=== PATIENT | female | born 1930 | race Caucasian/White ===

== ENCOUNTER 2017-02-09 11:21 | Inpatient (IN) | payer MEDICARE, BC, MEDICAID ==
[~2017-02-09] VITALS: Ht 165.1 cm; Wt 63.3 kg
--- NOTE | ~2017-02-09 | ECHO ---
Transthoracic Echocardiography Report (TTE) Demographics Patient Name MARIKA ALVA Date of Study 02/11/2017 Patient Number [id number] Visit Number [id number] Date of 1930 Room Number G6304 Accession Number [id number] Gender Female Age 86 year(s) Referring Britney Sanz MD Safety Administrator Peña Anne RVT, Physician RDCS Physician Interpreting Leigh Ibarra MD Solar Design Engineer Physician Supervising Ordering Physician Anthony Lui MD/MLP Nurse Stress Parachute Accessories Attacher Conclusions Contractility Score Summary Normal Left Ventricular contractility was noted. Summary The estimated left ventricular ejection fraction is 55-60%. Moderate to severe concentric left ventricular hypertrophy. The right atrium is mildly dilated. Moderate mitral annular calcification. The aortic valve is moderately sclerotic. Mild tricuspid regurgitation by color Doppler. There is moderate pulmonary hypertension. The pulmonary pressure (RVSP) is 48 mmHg. Mild pulmonic valve regurgitation by color Doppler. Procedure Type of Study TTE procedure:2D Echocardiogram. Procedure Date Date: 02/11/2017 Start: 10:43 AM Study Location: Inpatient Portable Technical Quality: Fair due to poor acoustical window. Indications:Endocarditis. Appropriate Use Criteria: 8 Patient Status: Routine HR: 94 bpm BP: 138/86 mmHg M-Mode/2D Measurements LV Diastolic Dimension: 4.41 cm LV Systolic Dimension: 3.66 cm LV Septum Diastolic: 1.83 cm LV PW Diastolic: 1.62 cm AO Root Dimension: 2.3 cm Cardiac Output: 3.75 l/min AV Cusp Separation: 1.2 cm RV Diastolic Dimension: 3.26 cm LA volume: 74 ml LVOT: 2 cm RV Base: 3.64 cm LVOT VTI: 12.7 cm RV Mid: 2.86 cm LV Stroke volume: 39.88 ml TAPSE: 2.08 cm TDI-S': 12.3 cm/s Doppler Measurements AV Peak Velocity: 1.77 m/s MV Peak E-Wave: 0.78 m/s AV Peak Gradient: 12.53 mmHg MV Peak A-Wave: 1.14 m/s AV Mean Gradient: 9 mmHg MV E/A Ratio: 0.68 LVOT Peak Velocity: 0.71 m/s MV P1/2t: 74 msec TR Gradient:43.3 mmHg PV Peak Velocity: 1.16 m/s Estimated RAP:5 mmHg PV Peak Gradient: 5.38 mmHg Estimated RVSP: 48 mmHg Estimated PASP: 48.3 mmHg E' Septal Velocity: 0.03 m/s A' Septal Velocity: 0.07 m/s E' Lateral Velocity: 0.06 m/s A' Lateral Velocity: 0.1 m/s Findings Left Ventricle Moderate to severe concentric left ventricular hypertrophy. Diastolic assessment reveals Grade I diastolic dysfunction. Right Ventricle Normal right ventricle structure and function. Left Atrium The left atrium is moderately dilated. There is no evidence of patent foramen ovale or atrial septal defect by color Doppler. Right Atrium The right atrium is mildly dilated. IVC measures 1.88 cm with inspiratory collapse. Mitral Valve Moderate mitral annular calcification. Trivial mitral regurgitation by color Doppler. Aortic Valve The aortic valve is moderately sclerotic. Tricuspid Valve Mild tricuspid regurgitation by color Doppler. There is moderate pulmonary hypertension. The pulmonary pressure (RVSP) is 48 mmHg. Pulmonic Valve Mild pulmonic valve regurgitation by color Doppler. Pericardial Effusion No evidence of pericardial effusion. Miscellaneous Visualized portions of the aortic root and ascending aorta appear normal in size. Pleural Effusion No evidence of pleural effusion. Contractility Score LV regional wall motion:(0-Non visualized 1-Normal 2-Hypokinesis 3-Akinesis 4-Dyskinesis 5-Aneurysm) Signature dtt: Fred Abraham (cardio) dtd: 02/11/17 1043 Physician Self Edit
--- NOTE | ~2017-02-09 | HP ---
PATIENT'S NAME: MARIKA ALVA [facility] AGE: 86 Y [address] ROOM: G6304 [place], [place] [address] LOCATION: [facility] ADMIT DATE: 02/09/2017 History & Physical DISCHARGE DATE: FAMILY PHYSICIAN: PHYSICIAN, UNKNOWN ATTENDING PHYSICIAN: MICHEAL IRIZARRY DATE OF SERVICE: CHIEF COMPLAINT: Generalized weakness. HISTORY OF PRESENT ILLNESS: This is an 86-year-old shelter female resident, who has a history of recurrent UTIs in the past. According to the patient's daughter and shelter staff, the patient for the last few days has become less interactive and complaining of generalized weakness. Also has decreased appetite. This morning, the patient was found to have a fever of 102.0 at the shelter. The patient had the breakfast, and a few hours after the breakfast, patient vomited once, but patient did not have any shortness of breath and she was not hypoxic. The last time she was seen by her daughter was 2 days ago, where the daughter also noticed that her mother has become less interactive and also looked tired. The patient chronically has whitish productive cough and this has not changed. The patient denies any chest pain or shortness of breath. No palpitation or diaphoresis, but she is just complaining of chills. When asked about the urinary frequency, urgency, and dysuria, patient denies. The patient has dementia at baseline, and according to the daughter, the baseline is alert, but sometimes she is not oriented and she is very easily forgetful, and sometimes cannot carry on normal conversation. Today, the patient looks weaker than her usual baseline according to the daughter. In the emergency room, the patient was found to have a UTI and a chest x-ray was clear, and saturation was normal on room air. The patient will be admitted for UTI management. REVIEW OF SYSTEMS: As mentioned in the history of present illness. All other systems were reviewed and were negative except for those mentioned in the history of present illness. PAST MEDICAL HISTORY: 1. 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 Chronically on anticoagulation with Eliquis. 2. Diabetes, type 2. 3. Hypertension. 4. CKD, stage 3. 5. Recurrent UTI in the past. PATIENT'S NAME: MARKIA ALVA [facility] AGE: 86 Y [address] ROOM: G6304 [place], [place] [address] LOCATION: [facility]U ADMIT DATE: 02/09/2017 History & Physical DISCHARGE DATE: FAMILY PHYSICIAN: PHYSICIAN, UNKNOWN ATTENDING PHYSICIAN: MICHEAL IRIZARRY 6. Gastroesophageal reflux disease. 7. Dementia. ALLERGIES: HER ALLERGY LIST FROM THE [facility]IDENT PAPERWORK SHOWS THAT SHE HAS ALLERGY TO: 1. VICTOR HUGO INHIBITOR, UNKNOWN REACTION. 2. BACTRIM, UNKNOWN REACTION. 3. CRESTOR, UNKNOWN REACTION. 4. LATEX, UNKNOWN REACTION. 5. MACROBID, ALSO UNKNOWN REACTION. 6. PREDNISONE, ALSO UNKNOWN REACTION. 7. ROFECOXIB, ALSO UNKNOWN REACTION. 8. RUBBER, ALSO UNKNOWN REACTION. 9. STRAWBERRY, ALSO UNKNOWN REACTION. 10. SOAP, ALSO UNKNOWN REACTION. 11. SULFA, ALSO UNKNOWN REACTION. 12. VIOXX, ALSO UNKNOWN REACTION. HOME MEDICATIONS: Currently are being reconciled. The patient does take Eliquis at home. SOCIAL HISTORY: The patient is a shelter resident. The patient is most of the time wheelchair bound. Denies any cigarette or illegal drug or alcohol use. FAMILY HISTORY: The patient could not remember any of her parents medical problems. PAST SURGICAL HISTORY: Status post right wrist fracture surgery in the past. PHYSICAL EXAMINATION: VITAL SIGNS: At the time of my dictation, temperature is 98.5, blood pressure is 140/96, heart rate is 80, respirations are 14, and saturation is 97% on room air. GENERAL APPEARANCE: Alert, currently is oriented to person and place, but not to time. The daughter states that this is her usual baseline. No acute distress. The patient looks sleepy, weak, and elderly. HEENT: Pupils equally round and reactive to light. Extraocular muscles intact. Anicteric sclerae. Nasal turbinates are normal bilaterally. Dry oral mucosa. NECK: No JVD. CARDIOVASCULAR: Regular rate and rhythm. Normal S1 and S2. No murmurs. No rubs. No gallops. PATIENT'S NAME: MARIKA ALVA [facility] AGE: 86 Y [address] ROOM: G6304 [place], [place] [address] LOCATION: GPCU ADMIT DATE: 02/09/2017 History & Physical DISCHARGE DATE: FAMILY PHYSICIAN: PHYSICIAN, UNKNOWN ATTENDING PHYSICIAN: MICHEAL IRIZARRY RESPIRATORY: Clear to auscultation. No rales. No rhonchi. No crackles. No wheezing at the moment. ABDOMEN: Soft, obese, nontender, nondistended, bowel sounds present, and no mass. EXTREMITIES: No edema in the upper or lower extremities. SKIN: No ulcer. No rash. No cyanosis. NEUROLOGIC: Alert and oriented only to people and place, but not to time at the moment on my examination. Otherwise, nonfocal. LABORATORY DATA: Lactic acid 1.2. Troponin 0.084, CPK 53. White blood cells 15.9, hemoglobin 9.9, hematocrit 30.8, MCV 88.8, and platelets 487,000. Glucose 143, BUN 23, creatinine 1.3, sodium 142, potassium 4.0, chloride 109, CO2 of 25, and calcium 8.9. Total protein 8.9, albumin 2.6, AST 10, ALT 15, alkaline phosphatase 124, total bilirubin 0.5, and GFR 39. Anion gap 12. INR 1.21. PTT 35. Urinalysis; 500 leukocytes, negative nitrite, many bacteria, and white blood cells 50-100. CK-MB 0.6, procalcitonin 0.18. IMAGING STUDY: 1. Chest x-ray on admission showed no acute finding. 2. EKG on admission showed heart rate of 72, sinus rhythm with Q-wave in the lead #3, inferior lead. No acute ST elevation or ST depression. QTc 427 milliseconds, QRS 94 milliseconds, and AK 191 milliseconds. No prior EKG for comparison based on the [employer]. EMERGENCY ROOM COURSE: In the emergency room, the patient got 1 L of normal saline bolus followed by the second liter running at 200 mL/h. Also got 1 dose of IV Levaquin. ASSESSMENT AND PLAN: 1. Regarding her severe sepsis secondary to urinary tract infection: The IV fluids, continue right now, she already got 1L bolus and systolic blood pressure and MAP already above 65. The sepsis order set has already been completed. Currently, blood pressure is stable as systolic is in the 160, MAP is in the 75. Heart rate is in 80s. Continue IV fluids for hydration and check blood sugar closely. Also start her on the antibiotics. I will choose IV Zosyn to cover her and tailor until the urine culture comes back for sensitivity. Zosyn is a good coverage for both urinary tract infection and also for aspiration pneumonitis or pneumonia events. Currently, the patient is on room air saturating at 98%. Lungs are clear. Chest x-ray was unremarkable. At the moment, unlikely to have aspiration pneumonia or pneumonitis. Blood culture 2 sets already obtained. Further plan will depend on clinical course. 2. Regarding her acute anemia: She is on Eliquis. Family denies any bleeding in the past. We will check blood type and screen. Continue the home medication with Protonix. We will watch her closely. I will check PATIENT'S NAME: MARIKA ALVA [facility] AGE: 86 Y [address] ROOM: [place] [address] LOCATION: GPCU ADMIT DATE: 02/09/2017 History & Physical DISCHARGE DATE: FAMILY PHYSICIAN: PHYSICIAN, UNKNOWN ATTENDING PHYSICIAN: MICHEAL IRIZARRY another hemoglobin and hematocrit later tonight. 3. Regarding her troponin elevation: Cycle every 6 hours. The patient denies any chest pain. EKG; no acute ischemia. The patient is DNR/DNI. Further plan will depend on clinical course. We do not have any baseline to compare the troponin elevation, therefore, this could be from acute kidney injury on chronic kidney disease. 4. Regarding her acute kidney injury on chronic kidney disease, stage 3: Continue with IV fluid hydration. Check a renal panel again tomorrow. 5. Regarding her diabetes, type 2: Check A1c. Put the insulin NovoLog a.c. and at bedtime low dose and titrate as necessary. 6. Regarding her history of right lower extremity deep venous thrombosis: Continue with Eliquis. Watch closely for the hemoglobin and hematocrit. 7. Regarding her hypertension: I will hold the blood pressure medication in the setting of severe sepsis with hypotension. 8. Regarding her gastroesophageal reflux disease: Continue the home Protonix. 9. Regarding her deep venous thrombosis prophylaxis: She is already on Eliquis. 10. Code status: She is a DNR/DNI. Time spent in care on the day of admission 45 minutes where 25 minutes were spent in counseling, including going over the plan of care and also addressing all the questions and concerns the patient and the patient's daughter had. The remainder of the time was spent in interview and physical examination. Also on the chart review. Further plan will depend on clinical course. MD KEERTHI BHAGAT/yokasta /[id number] D: [id number] T: [id number] HISTORY & PHYSICAL
--- NOTE | ~2017-02-09 | CON ---
PATIENT'S NAME: MARIKA ALVA [facility] AGE: 86 Y [address] ROOM: [place] [address] LOCATION: GPCU ADMIT DATE: 02/09/2017 Consultation DISCHARGE DATE: 02/13/2017 FAMILY PHYSICIAN: Physician, Unknown ATTENDING PHYSICIAN: Senthil Tan DATE OF CONSULTATION: 02/13/2017 REFERRING PHYSICIAN: Hu Shin MD REASON FOR CONSULT: Red buttocks. HISTORY OF PRESENT ILLNESS: This is an 86-year-old female patient who is admitted to [facility] with weakness and a fever. She has a history of dementia and recurrent urinary tract infections. She currently resides at [facility]. Nursing reports frequent stools with redness to buttocks. The [facility] RN saw patient for the skin assessment yesterday and no redness was noted. No signs of pressure ulcers. The patient does complain of pain to the site. She currently reports a fair oral intake. She currently reports being afebrile. She complains of being "cold." No family at bedside. PAST MEDICAL HISTORY: Dementia, recurrent urinary tract infections, history of right lower leg deep venous thrombosis, type 2 diabetes, essential hypertension, chronic kidney disease stage 3, and GERD. PAST SURGICAL HISTORY: Bilateral cataract surgery, right hip repair, right femur fracture, right wrist surgery, back surgery, and a right cheek repair. PAST FAMILY MEDICAL HISTORY: Positive for an LA. SOCIAL HISTORY: The patient currently resides at [facility]. No toxic habits noted. ALLERGIES: LATEX, PERFUMES, VICTOR HUGO INHIBITOR, SULFA, ANIMAL DANDER, CEPHALEXIN, LANOLIN, MOLD, MACROBID, PREDNISONE, CRESTOR, SOAPS, STRAWBERRIES, BACTRIM, ROFECOXIB, DUST, FORMALDEHYDE, PLASTIC TAPE, RUBBER, AND DETERGENTS. CURRENT MEDICATIONS: Please refer to the medication administration record. PATIENT'S NAME: MARIKA ALVA [facility] AGE: 86 Y [address] ROOM: [place] [address] LOCATION: GPCU ADMIT DATE: 02/09/2017 Consultation DISCHARGE DATE: 02/13/2017 FAMILY PHYSICIAN: , Unknown ATTENDING PHYSICIAN: Senthil Tan REVIEW OF SYSTEMS: Unable to fully complete due to patient's history of dementia. Please see HPI for further details. PHYSICAL EXAMINATION: VITAL SIGNS: Temperature 97.5, pulse 80, respirations 12, blood pressure was 124/57, pulse oximetry 94% on room air. Height 5 feet 5 inches and weight 63.3 kg. GENERAL: The patient is alert. Complains she is cold. HEENT: Head normocephalic, atraumatic. NEUROLOGICAL: Deferred. EXTREMITIES: Deferred. ABDOMEN: Flat. SKIN: Bright redness to peritoneum. No skin denudement. Very tender to touch. No redness over the bony prominences or the sacrum. Groin folds intact. LABORATORY: White blood cell count 9.2, hemoglobin 7.9, hematocrit 25.3, platelets 393. Sodium 141, potassium 3.5, chloride 111, bicarb 22, BUN 12, creatinine 0.9, glucose 140, albumin 2.0. Blood cultures positive for Staphylococcus epidermidis. ASSESSMENT AND PLAN: Again, this is an 86-year-old female patient who admitted to [facility] with weakness and fever. Wound care consult to evaluate a red buttocks. Incontinence-associated dermatitis with no skin denudement. Classic presentation. Very painful per palpation. We will discontinue the Aloe [place] and coat the site with Sensi-Care zinc barrier paste applying q.i.d. after brief change. I instructed nursing to perform brief check and change every 2 hours. I would like to thank Dr. Shin for this consult. DAVID SAGASTUME APRN FOR MD FBAIENNE GORMAN/modl PATIENT'S NAME: MARIKA ALVA [facility] AGE: 86 Y [address] ROOM: G6[address] [place], [place] [address] LOCATION: GPCU ADMIT DATE: 02/09/2017 Consultation DISCHARGE DATE: 02/13/2017 FAMILY PHYSICIAN: Physician, Unknown ATTENDING PHYSICIAN: Senthil Tan /[id number] d: 02/13/17 1624 t: 02/18/17 1029, CONSULTATION REPORT
--- NOTE | ~2017-02-09 | ER ---
PATIENT'S NAME: MARIKA ALVA [facility] AGE: 86 Y [address] ROOM: [place] [address] LOCATION: GPCU ADMIT DATE: 02/09/2017 ER/Outpatient Report DISCHARGE DATE: FAMILY PHYSICIAN: PHYSICIAN, UNKNOWN ATTENDING PHYSICIAN: MICHEAL IRIZARRY Time of Arrival: 1121. Time Seen: 1123. IDENTIFICATION: An 86-year-old female. CHIEF COMPLAINT: Illness. HISTORY OF PRESENT ILLNESS: The patient is an 86-year-old female patient from [facility]. The patient not acting like herself according to the residential staff, is pale, and had a reported temp at 0445 of 102.4. The patient was brought in by ambulance. On the ambulance, her blood pressure was 130 systolic. On arrival here, her blood pressure is 86/40. The patient does have a history of dementia. She complains of hurting "all over." Her daughter said she has not felt well for a couple of days, just has not been her usual self. ALLERGIES: VICTOR HUGO INHIBITORS, ANIMAL DANDER, BACTRIM, CRESTOR, DETERGENT, DUST, FORMAMIDES, LANOLIN, LATEX, MACROBID, MOLD, PLASTIC TAPE, PREDNISONE, ROFECOXIB, RUBBER, SOAP, STRAWBERRIES, SULFA ANTIBIOTICS, AND VIOXX. CURRENT MEDICATIONS: 1. Claritin 10 mg daily. 2. Gabapentin 300 mg daily. 3. Multivitamin daily. 4. Norvasc 10 mg daily. 5. Omeprazole 20 mg daily. 6. Os-Jonny 500/200 daily. 7. Tylenol Extra Strength. 8. Eliquis 2.5 mg b.i.d. 9. Metoprolol 50 mg b.i.d. 10. Cheratussin AC. 11. Dulcolax suppository p.r.n. 12. Milk of magnesia p.r.n. 13. Tylenol p.r.n. MEDICAL PROBLEMS: PATIENT'S NAME: MARIKA ALVA [facility] AGE: 86 Y [address] ROOM: [place] [address] LOCATION: GPCU ADMIT DATE: 02/09/2017 ER/Outpatient Report DISCHARGE DATE: FAMILY PHYSICIAN: PHYSICIAN, UNKNOWN ATTENDING PHYSICIAN: MICHEAL IRIZARRY History of UTIs, hypertension, depression, osteoporosis, osteoarthritis, cervical and lumbar spinal stenosis, and atopic dermatitis. PRIOR SURGERIES: Right intramedullary nail placement and right wrist fracture repair. SOCIAL HISTORY: The patient lives at [facility]. She is wheelchair bound. Tobacco use, denies. Alcohol use, denies. Drug use, denies. REVIEW OF SYSTEMS: The patient does state she has had a nonproductive cough and her daughter agrees that she has had kind of a continued cough, but that is not new. FAMILY HISTORY: No pertinent family history identified. PHYSICAL EXAMINATION: VITAL SIGNS: Weight 63.3 kg, blood pressure 86/40, pulse 75, respirations 16, temperature 98.2, and sats 92% on room air. The patient's blood pressure was 86/40 and IV had already been initiated. We did open up 1 L of normal saline fluid bolus and obtained labs and sepsis evaluation. Blood pressure did improve to 90 systolic and then up to 108 systolic with that 1 L of normal saline. LABORATORY DATA: Blood cultures x2 are pending. Sepsis protocol was initiated. Hemoglobin 9.9, previous hemoglobin in August 2015 was 11.7; hematocrit 30.8; platelets 47; white count 15.9; 79% neutrophils. UA, cath urine, specific gravity 1.015, pH 6, leukocytes positive, 50-100 white cells, 10-20 red cells, rare epithelial cells, many bacteria. Urine culture pending. Lactate 1.2. EKG, normal sinus rhythm at 72 beats per minute. No acute ST elevation or depression. T-wave inversion in lead III is present. Procalcitonin 0.18. Sodium 142, potassium 4, chloride 109, CO2 of 25, BUN 23, and creatinine 1.3, which is elevated from 1.1 in August 2015. Blood sugar 143. Liver enzymes normal. ProBNP 12,998. Troponin I 0.084. CPK 53, CK-MB 0.6. A 1-view chest x-ray, cardiomegaly. No CHF or pneumonia. Mild diffuse parenchymal lung scarring. IMPRESSION: 1. Sepsis. Sepsis criteria are met. ER orders were initiated and the patient responded to the fluid bolus with blood pressures greater than 100 systolic. 2. Urinary tract infection. Levaquin initiated in the emergency room. 3. Congestive heart failure. PATIENT'S NAME: MARIKA ALVA [facility] AGE: 86 Y [address] ROOM: [place] [address] [facility] ADMIT DATE: 02/09/2017 ER/Outpatient Report DISCHARGE DATE: FAMILY PHYSICIAN: PHYSICIAN, UNKNOWN ATTENDING PHYSICIAN: MICHEAL IRIZARRY 4. Dementia. The patient will be admitted per Dr. Irizarry, who evaluated the patient in the emergency room. She is a DNR and that was confirmed with orders from the residential and with her daughter. The patient arrived to the emergency room at 1121 and was taken to the floor at 1350, 40 minutes of critical care was provided in the emergency room. MD JOSE DE JESUS SPANN/yokasta /[id number] d: 02/09/17 1855 t: 02/10/17 1458, OUTPATIENT REPORT
--- NOTE | ~2017-02-09 | DS ---
PATIENT'S NAME: MARIKA ALVA [facility] AGE: 86 Y [address] ROOM: [address] [place], [place] [address] LOCATION: GPCU ADMIT DATE: 02/09/2017 Discharge Summary DISCHARGE DATE: 02/13/2017 FAMILY PHYSICIAN: Physician, Unknown ATTENDING PHYSICIAN: Senthil Tan PRINCIPAL DIAGNOSES: 1. Urinary tract infection sepsis. 2. Staphylococcus bacteremia. 3. Long-term use of anticoagulation. 4. Type 2 diabetes. 5. Sinus arrhythmia. 6. History of lower extremity deep vein thrombosis, on Eliquis. BRIEF HOSPITAL COURSE: Please refer to admission H and P for a detailed history of initial presentation. This is an 86-year-old female, who is a halfway resident and recurrent previous admissions for UTI sepsis, presents with altered mental status and was noted to have another UTI. On further work up, the patient's blood culture in one bottle grew Staphylococcus epidermidis which later was identified to be Staphylococcus epidermidis and was perhaps a contaminant. The patient was treated with broad-spectrum antibiotics with vancomycin and Zosyn during her hospital stay and at this point, we will discharge the patient to finish a 7 day course of antibiotics in total with Levaquin. The patient today is awake, alert, oriented x3, in no acute distress, in good spirits. I did talk to the patient's primary care physician with regard to her being on long-term anticoagulation for a history of lower extremity DVT over a year ago. At this point, I will discontinue Eliquis and I have communicated this to the patient's primary care physician, . There is no indication for this going forward. The patient is ready to be discharged in satisfactory condition. PHYSICAL EXAMINATION: VITAL SIGNS: Stable, afebrile for the past 48 hours. HEART: S1, S2. Regular rate and rhythm. ABDOMEN: Soft. Nontender, nondistended. EXTREMITIES: Without edema. NEUROLOGIC: Grossly nonfocal. MEDICATIONS: Per OCT. DISPOSITION: Back to halfway. Greater than 30 minutes were spent in discharge planning and facilitating. PATIENT'S NAME: MARIKA ALVA [facility] AGE: 86 Y [address] ROOM: [address] [place], [place] [address] LOCATION: GPCU ADMIT DATE: 02/09/2017 Discharge Summary DISCHARGE DATE: 02/13/2017 FAMILY PHYSICIAN: Mckenzie William ATTENDING PHYSICIAN: Senthil Tan MD RICH RAMIREZ/modl /[id number] d: 02/14/17913 t: 02/25/17 1510, DISCHARGE SUMMARY
[~2017-02-09 11:21] MED LIST changes: -CHERATUSSIN AC236 ML PO; -CLARITIN10 MG PO; -DULCOLAX10 MG R; -MILK OF MA400 MG/5 M PO; -OXYGEN M-15 NOSE; -TRIAMCINOLONE454 GM TOP
[2017-02-09 12:16] LABS: BILIRUBIN URINE NEGATIVE (NEGATIVE); BLOOD URINE 250 /UL (NEGATIVE); COLOR URINE YELLOW (YELLOW); GLUCOSE URINE NEGATIVE (NEGATIVE); KETONE URINE NEGATIVE (NEGATIVE); LEUKOCYTES URINE 500 /UL (NEGATIVE); NITRITE URINE NEGATIVE (NEGATIVE); PROTEIN URINE 100 mg/dL (NEGATIVE); SPEC GRAVITY URINE 1.015 (1.003-1.035); TURBIDITY URINE 3+ (CLEAR); UROBILINOGEN URINE NORMAL (NORMAL)
[2017-02-09 12:31] LABS: BASOPHIL % 0.3 %; EOSINOPHIL # 0.1 K/uL (0.0-0.5); EOSINOPHIL % 0.5 %; HEMATOCRIT 30.8 % (30.0-46.0); HEMOGLOBIN 9.9 g/dL (10.0-15.0); IMMATURE GRANULOCYTE # 0.1 K/uL (0.0-0.3); IMMATURE GRANULOCYTE % 0.8 %; LYMPHOCYTE # 1.6 K/uL (0.8-4.0); LYMPHOCYTE % 10.3 %; MCH 28.5 pg (27.0-34.0); MCHC 32.1 gm/dL (32.0-36.5); MCV 88.8 fl (83.0-98.0); MONOCYTE # 1.4 K/uL (0.0-1.0); MONOCYTE % 8.7 %; MPV 9.7 fl (9.4-12.4); NEUTROPHIL # (ANC) 12.6 K/uL (1.8-7.8); NEUTROPHIL % 79.4 %; NRBC % 0 /100WBC (0-0.00); PLATELET COUNT 487 K/uL (150-450); RBC 3.47 M/uL (3.00-5.00); RDW-CV 13.6 % (11.9-14.6); WBC 15.9 K/uL (4.0-11.0)
[2017-02-09 12:32] LABS: WBC URINE 50-100 #/HPF (NEGATIVE)
[2017-02-09 12:33] LABS: BACTERIA URINE MANY (NEGATIVE); EPITHELIAL URINE RARE #/HPF (NEGATIVE)
[2017-02-09 12:39] LABS: INR - (THERAPEUTIC) 1.21 (0.92-1.07); PROTIME 12.7 SECONDS (9.8-11.4)
[2017-02-09 12:53] LABS: ALBUMIN 2.6 gm/dL (3.5-5.0); CALCIUM 8.9 mg/dL (8.5-10.5); CREATININE 1.3 mg/dL (0.5-1.1); TOTAL BILIRUBIN 0.5 mg/dL (0.0-1.5); TOTAL PROTEIN 8.9 g/dL (6.0-8.4)
[2017-02-09] MEDS ORDERED: CLARITIN10 MG PO (15:40)
[2017-02-09] MEDS ORDERED: MILK OF MA400 MG/5 M PO (15:49)
[2017-02-09] MEDS ORDERED: DULCOLAX10 MG R (15:51)
[2017-02-09] MEDS ORDERED: CHERATUSSIN AC236 ML PO (15:53)
[2017-02-09] MEDS ORDERED: OXYGEN M-15 NOSE (15:59)
[2017-02-09] MEDS ORDERED: TRIAMCINOLONE454 GM TOP (16:01)
[2017-02-09 18:37] LABS: HEMATOCRIT 29.2 % (30.0-46.0); HEMOGLOBIN 9.4 g/dL (10.0-15.0); MCH 28.5 pg (27.0-34.0); MCHC 32.2 gm/dL (32.0-36.5); MCV 88.5 fl (83.0-98.0); MPV 9.5 fl (9.4-12.4); RBC 3.3 M/uL (3.00-5.00); RDW-CV 13.4 % (11.9-14.6); WBC 13.4 K/uL (4.0-11.0)
--- NOTE | 2017-02-09 18:45 | NUR ---
ADMISSION NOTE: Pt lives at [facility] where she had fever of 102.4 last night and just not acting herself/agitation. Family also reports cough for past 2 months. Cxray neg to pneumonia. Giving Abx for UTI. Hx of dementia, HTN, GERD, multiple DVTs, spinal stenosis. Many allergies including latex. VSS, afebrile, on 1L O2 to keep sats >94%. Oriented to person, able to state daughters name. Denies chest pain, will repeat EKG and cardiac enzymes. Full lift, turn Q2, weak BLE, L arm weaker than R. Incontinent, 2 BM today. No previous dx of diabetes, orders for Accuchek ACHS with mild sliding scale, A1C 7.3. Poor appetite, needs encouragement with meals, regular texture diet. Pills crushed with applesauce per senior living.
[2017-02-09 18:51] LABS: ANION GAP 12.9 (10.0-19.0); CALCIUM 8.5 mg/dL (8.5-10.5); CREATININE 1.2 mg/dL (0.5-1.1); POTASSIUM 3.9 mMol/L (3.7-5.1)
[2017-02-10 01:02] LABS: HEMATOCRIT 31.5 % (30.0-46.0)
--- NOTE | 2017-02-10 05:16 | NUR ---
Significant Event: ALERT TO PERSON. DISORIENTED TO TIME/PLACE. PLEASANTLY CONFUSED ALL NIGHT. NOT SLEEPING WELL. INCONT OF LARGE AMOUNTS OF URINE ALL NIGHT. O2 AT 1L. TEMP AT 0215 WAS 100.8, AXILLARY. HAD BEEN AFEBRILE PRIOR TO THIS. Follow up:
[2017-02-10 06:59] LABS: HEMATOCRIT 27.8 % (30.0-46.0); HEMOGLOBIN 8.9 g/dL (10.0-15.0); MCH 28.4 pg (27.0-34.0); MCV 88.8 fl (83.0-98.0); MPV 9.6 fl (9.4-12.4); RBC 3.13 M/uL (3.00-5.00); RDW-CV 13.6 % (11.9-14.6); WBC 13.3 K/uL (4.0-11.0)
[2017-02-10 07:12] LABS: ANION GAP 13.7 (10.0-19.0); CALCIUM 8.2 mg/dL (8.5-10.5); POTASSIUM 3.7 mMol/L (3.7-5.1)
[2017-02-10 07:30] LABS: CPK 67 IU/L (21-215)
--- NOTE | 2017-02-10 16:42 | NUR ---
Significant Event: Alert. Appears to be comfortable but states she aches "everywhere". Tylenol given and frequent repositioning. Poor appetite, refused lunch when speech here to assess swallowing so they will follow up tomorrow. Incontinent of stool and urine. Tn-I unchanged. Follow up: cont plan of care
[2017-02-11 03:49] LABS: BASOPHIL % 0.3 %; EOSINOPHIL # 0.2 K/uL (0.0-0.5); EOSINOPHIL % 1.3 %; HEMATOCRIT 29.6 % (30.0-46.0); HEMOGLOBIN 9.4 g/dL (10.0-15.0); IMMATURE GRANULOCYTE # 0.1 K/uL (0.0-0.3); IMMATURE GRANULOCYTE % 0.8 %; LYMPHOCYTE # 1.3 K/uL (0.8-4.0); LYMPHOCYTE % 9.8 %; MCH 28.3 pg (27.0-34.0); MCHC 31.8 gm/dL (32.0-36.5); MCV 89.2 fl (83.0-98.0); MONOCYTE # 1.1 K/uL (0.0-1.0); MONOCYTE % 8.2 %; MPV 9.7 fl (9.4-12.4); NEUTROPHIL # (ANC) 10.7 K/uL (1.8-7.8); NEUTROPHIL % 79.6 %; NRBC % 0 /100WBC (0-0.00); PLATELET COUNT 402 K/uL (150-450); RBC 3.32 M/uL (3.00-5.00); RDW-CV 13.7 % (11.9-14.6); WBC 13.5 K/uL (4.0-11.0)
[2017-02-11 04:03] LABS: ALBUMIN 2.2 gm/dL (3.5-5.0); ANION GAP 13.5 (10.0-19.0); CALCIUM 8.3 mg/dL (8.5-10.5); MAGNESIUM 1.5 mg/dL (1.8-2.6); PHOSPHORUS 2.5 mg/dL (2.5-4.9); POTASSIUM 3.5 mMol/L (3.7-5.1)
--- NOTE | 2017-02-11 05:38 | NUR ---
Significant Event: ONLY C/O PAIN WHEN MOVED. REMAINS INCONT OF URINE ALL NIGHT. NO BM. REMAINS DISORIENTED TO TIME. ORIENTED TO PLACE. BLOOD CULTURES FORM ER CAME BACK POSITIVE AND DR. PELAEZ NOTIFIED AND HE STARTED IV VANCOMYCIN. MAX TEMP WAS 99.6 AXILLARY. HR IN THE 90s TO LOW 100s. STILL HAS LITTLE APPETITE. ONLY ATE ICE CREAM FOR SUPPER. Follow up:
--- NOTE | 2017-02-11 14:31 | NUR ---
Patient resides at [facility] in [place]. Plan will be to return to [facility] on discharge. I updated Melissa WESTON at [facility] on patient condition.
--- NOTE | 2017-02-11 17:07 | NUR ---
Significant Event: VSS AND RA. AFEBRILE. SCHEDULED TYLENOL, DENIES PAIN. REPOSITIONED Q2H AND ALOE TO BUTTOCKS. INC URINE AND STOOL. HAD A BEDSIDE SWALLOW EVAL AND AN MBS; TO HAVE A MECHANICAL SOFT DIET WITH THIN CONSISTENCY FLUIDS AND A 1:1 FEEDER. MEDS CRUSHED IN PUDDING/APPLESAUCE. PT/OT FOLLOWING AND DANGLES AT BEDSIDE. BASELINE DEMENTIA, ORIENTED TO SELF ONLY. IV ABX CONTINUE. EKG AND ECHO WERE ALSO DONE AND PO LOPRESSOR STARTED FOR TACHY HR'S 90S-100S; HAVE BEEN 70S-80S THIS AFTERNOON P DOSE GIVEN. SBPS 100S-140S. Follow up: CONTINUE PLAN OF CARE.
[2017-02-12 03:59] LABS: BASOPHIL # 0.1 K/uL (0.0-0.2); BASOPHIL % 0.5 %; EOSINOPHIL # 0.2 K/uL (0.0-0.5); HEMATOCRIT 25.8 % (30.0-46.0); HEMOGLOBIN 8.2 g/dL (10.0-15.0); IMMATURE GRANULOCYTE # 0.1 K/uL (0.0-0.3); IMMATURE GRANULOCYTE % 0.8 %; LYMPHOCYTE # 1.4 K/uL (0.8-4.0); LYMPHOCYTE % 13.6 %; MCH 28.1 pg (27.0-34.0); MCHC 31.8 gm/dL (32.0-36.5); MCV 88.4 fl (83.0-98.0); MONOCYTE # 0.9 K/uL (0.0-1.0); MONOCYTE % 8.8 %; MPV 9.6 fl (9.4-12.4); NEUTROPHIL # (ANC) 7.8 K/uL (1.8-7.8); NEUTROPHIL % 74.3 %; NRBC % 0 /100WBC (0-0.00); PLATELET COUNT 413 K/uL (150-450); RBC 2.92 M/uL (3.00-5.00); RDW-CV 13.7 % (11.9-14.6); WBC 10.5 K/uL (4.0-11.0)
[2017-02-12 04:22] LABS: ANION GAP 13.3 (10.0-19.0); MAGNESIUM 1.4 mg/dL (1.8-2.6); PHOSPHORUS 2.1 mg/dL (2.5-4.9); POTASSIUM 3.3 mMol/L (3.7-5.1)
--- NOTE | 2017-02-12 05:46 | NUR ---
Significant evnt: patient alert to self only. 1:1 feeder. mechanical soft diet and thin liquids. Crush meds and put in apple sauce. Turn every 2 hours to reposition. Incon of bowel and bladder. IV ATB intermit runnig in the left ac.
--- NOTE | 2017-02-12 19:00 | NUR ---
Significant Event: Patient A/O to self. VSS. Afebrile. BP 100-110's HR 80-70's. Full lift. Patient turned q2h. Inc of fecal and urine. Jp area very reddened. Applied aloe vera with every change. WOC to assess jp area. Sent sample of bm to lab for C-Diff test @ 1830. IV ABX in L) forearm. Continue mechanical soft diet per speech therapy. 1:1 feeder. Follow up: Continue per patient plan of care. Follow-up on C-Diff results. WOC to assess jp area.
--- NOTE | 2017-02-13 04:44 | NUR ---
Significant Event: Patient oriented to self only. Axillary temp with third assessment 100.3. Oral recheck 97.5. All other vital signs stable. On RA. No complaints of pain this shift. Repositioned Q2. Incontinent of bowel and bladder. Periarea remains red. Mechanical soft diet with thin liquids. 1:1 feeder. Meds crushed with applesauce. Left forearm PIV with intermittant antibiotic. Patient calm and cooperative with all cares. Follow up: Will continue to monitor per plan of care.
[2017-02-13 05:20] LABS: BASOPHIL % 0.4 %; EOSINOPHIL # 0.3 K/uL (0.0-0.5); HEMATOCRIT 25.3 % (30.0-46.0); IMMATURE GRANULOCYTE # 0.1 K/uL (0.0-0.3); IMMATURE GRANULOCYTE % 1.2 %; LYMPHOCYTE # 1.4 K/uL (0.8-4.0); LYMPHOCYTE % 14.9 %; MCH 27.4 pg (27.0-34.0); MCHC 31.2 gm/dL (32.0-36.5); MCV 87.8 fl (83.0-98.0); MONOCYTE # 0.8 K/uL (0.0-1.0); MONOCYTE % 8.6 %; MPV 9.6 fl (9.4-12.4); NEUTROPHIL # (ANC) 6.6 K/uL (1.8-7.8); NEUTROPHIL % 71.9 %; NRBC % 0 /100WBC (0-0.00); PLATELET COUNT 393 K/uL (150-450); RBC 2.88 M/uL (3.00-5.00); RDW-CV 13.8 % (11.9-14.6); WBC 9.2 K/uL (4.0-11.0)
[2017-02-13 05:28] LABS: HEMOGLOBIN 7.9 g/dL (10.0-15.0)
[2017-02-13 05:38] LABS: ANION GAP 11.5 (10.0-19.0); CALCIUM 7.7 mg/dL (8.5-10.5); CREATININE 0.9 mg/dL (0.5-1.1); MAGNESIUM 1.5 mg/dL (1.8-2.6); POTASSIUM 3.5 mMol/L (3.7-5.1)
--- NOTE | 2017-02-13 12:14 | NUR ---
A - NUTRITION FOLLOW-UP CONFUSED PER RN. C-DIFF NEGATIVE. LABS: K+ 3.5, GLU 140, ALB 2.0, MG 1.5 NEW MEDS: LOPRESSOR. PT IS ON ELIQUIS, MILD SSI. DIET: CONSISTENT CARBS/MECH SOFT W/ GLUCERNA BID AND MAGIC CUP ONCE DAILY. 1:1 FEEDER. PER RN, DAUGHTER FED PT THIS AM. DAUGHTER NOT IN ROOM DURING VISIT. INTAKE 29% X4 MEALS, TAKES ORAL SUPPLEMENT 75-100% X1 NOTED. NOTICED CONFUSION FROM CONVERSATION W/ PT. HAD ABOUT 50% OF ENSURE ENLIVE, LIKES IT OKAY. EST NEEDS: 0122-0620 KCAL, 63-76 GRAMS PROTEIN, FLUID NEEDS: 1ML/KCAL D - INADEQUATE ORAL INTAKE RELATED TO DECREASED APPETITE SECONDARY TO ALTERED MENTAL STATUS EVIDENCED BY PO 29% X4 MEALS. I - WILL CHANGE GLUCERNA TO ENSURE ENLIVE BID; CONTINUE W/ MAGIC CUP 1X/DAY M/E - GOAL: PT WILL BE ABLE TO TOLERATE >50% OF MEALS AND AT LEAST ONE ORAL SUPPLEMENT PER DAY IN 2-4 DAYS.
--- NOTE | 2017-02-13 12:15 | NUR ---
Received call from Dr Shin asking is patient could be transferred back to [facility] today. I placed a call to Melissa WESTON. She called back and stated that they could transport patient at 1330. Laura WESTON faxed orders.
--- NOTE | 2017-02-13 13:14 | NUR ---
Transfer Note: Patient only oriented to self and remains at baseline neuro status. Full lift. Vital signs stable: HR 67, RR 20, BP 128/60, O2 saturation 95% on RA, and temperature 98.0 F. Denies pain or shortness of breath. Buttocks reddened, bilateral heels reddend, as well as tips of great toes. No open areas. Mechanical soft diet with thing liquids. Report given to Julianna [facility] ORLIN and states she has no further questions. Patient to be transported back to [facility] by their staff. Batsheva ORDAZ 02/13/17
--- NOTE | 2017-02-13 14:02 | NUR ---
Patient left PCU at 1340. No other needs upon discharge. Batsheva ORDAZ 02/13/17
== END 2017-02-13 13:40 | DRG 872 ==
LOC: GMED 11:21 → GPCU 12:36
PROVIDERS: Family Medicine; Internal Medicine; ADMIT Internal Medicine
DX: A41.9 Sepsis, unspecified organism (principal); N17.9 Acute kidney failure, unspecified; E11.22 Type 2 diabetes mellitus with diabetic chronic kidney disease; F03.90 Unspecified dementia, unspecified severity, without behavioral disturbance, psychotic disturbance, mood disturbance, and anxiety; R13.10 Dysphagia, unspecified; N39.0 Urinary tract infection, site not specified; I12.9 Hypertensive chronic kidney disease with stage 1 through stage 4 chronic kidney disease, or unspecified chronic kidney disease; N18.3 Chronic kidney disease, stage 3 (moderate); K21.9 Gastro-esophageal reflux disease without esophagitis; I49.8 Other specified cardiac arrhythmias; D64.9 Anemia, unspecified; L30.8 Other specified dermatitis; R32 Unspecified urinary incontinence; Z66 Do not resuscitate; Z86.718 Personal history of other venous thrombosis and embolism; Z88.1 Allergy status to other antibiotic agents; Z79.01 Long term (current) use of anticoagulants; Z91.040 Latex allergy status; Z88.2 Allergy status to sulfonamides; Z91.018 Allergy to other foods; Z99.3 Dependence on wheelchair
CPT/HCPCS: J1956; J2543; J3370; J7030; J7050

== ENCOUNTER → 2017-02-09 | Outpatient (CLI) | payer MEDICARE, BC, MEDICAID ==
[~2017-02-09] MED LIST: ALDACTONE25 MG PO; AMLODIPINE BESY10 MG PO; CHERATUSSIN AC236 ML PO; CIPRO500 MG PO; CLARITIN10 MG PO; DULCOLAX10 MG R; ELIQUIS2.5 MG PO; ELIQUIS5 MG PO; FLONASE 50 MCG/16 GM NOSE; LOPRESSOR50 MG PO; MILK OF MA400 MG/5 M PO; NEURONTIN300 MG PO; OSCAL + D500 MG PO; OXYGEN M-15 NOSE; PRILOSEC20 MG PO; SYMBICORT 80-10.2 GM INH; THERA-VITE W/ B1 TAB PO; TRIAMCINOLONE454 GM TOP; TYLENOL EXTRA500 MG PO; TYLENOL325 MG PO; VANICREAM18200 GM TOP
== END | disposition disaster alternative care site (69) ==
LOC: GAMB 11:01
DX: R10.9 Unspecified abdominal pain (principal); R50.9 Fever, unspecified; R19.7 Diarrhea, unspecified; R11.10 Vomiting, unspecified; Z79.899 Other long term (current) drug therapy; Z88.2 Allergy status to sulfonamides; Z88.8 Allergy status to other drugs, medicaments and biological substances
CPT/HCPCS: A0425; A0429; J7030